=== PATIENT | male | born 1955 | race Caucasian/White ===

== ENCOUNTER → 2018-02-11 08:41 | Outpatient (CLI) | payer MEDICAID, SELFPAY ==
[2018-02-11 11:17] LABS: Cholesterol 165 mg/dL (50-200); HDL Cholesterol 48 mg/dL (40-60); LDL CHOLESTEROL 103 mg/dL (<100); Triglyceride 158 mg/dL (30-150)
[2018-02-11 11:37] LABS: Hemoglobin A1C 7.8 % (4.5-6.2)
== END ==
PROVIDERS: PCP Family Medicine; Visit Provider Family Medicine
DX: E11.9 Type 2 diabetes mellitus without complications (principal); E78.5 Hyperlipidemia, unspecified
CPT/HCPCS: 36415; 80061; 83721; 83036

== ENCOUNTER → 2018-02-26 15:03 | Outpatient (REF) | payer SELFPAY | LOC: OM 15:03 | PROVIDERS: PCP Family Medicine; Visit Provider Nurse Practitioner Family | DX: Z02.79 Encounter for issue of other medical certificate (principal) ==

== ENCOUNTER 2018-08-12 08:40 | Outpatient (CLI) | payer MEDICAID, SELFPAY ==
[2018-08-12 11:37] LABS: CREATININE 1.42 mg/dL (0.70-1.30); Cholesterol 169 mg/dL (50-200); Estimated GFR 50.19 (mL/min/1.73m2); HDL Cholesterol 45 mg/dL (40-60); LDL CHOLESTEROL 95 mg/dL (<100); Potassium 4.1 mmol/L (3.5-5.1); Triglyceride 172 mg/dL (30-150)
[2018-08-12 11:38] LABS: Hemoglobin A1C 7.1 % (4.5-6.2)
== END 2018-08-12 09:00 ==
PROVIDERS: PCP Family Medicine; Visit Provider Family Medicine
DX: E11.9 Type 2 diabetes mellitus without complications (principal)
CPT/HCPCS: 36415; 80061; 83721; 82565; 83036; 84132

== ENCOUNTER 2018-09-27 08:58 | Emergency (ER) | payer MEDICAID, SELFPAY ==
[2018-09-27 09:06] VITALS: BP 149/76; PULSE 69; RESP 14; TEMP 36.6; O2SAT 97
--- NOTE | 2018-09-27 09:10 | W.ED.GENAD ---
Discharge Plan Disposition Patient Disposition: HOME Condition: Stable Discharge Details Chief Complaint: Nk/Back Pain Clinical Impression: Compression fracture of thoracic vertebra Primary Care Provider: Houston Scott ED Provider: Patt Costa Home Meds and New Rx's Prescriptions: New methocarbamol 750 mg tablet 750 mg PO Q4H PRN (Reason: muscle spasm) Qty: 20 RF: 0 Continued aspirin [Ecotrin Low Strength] 81 MG tablet,delayed release (DR/EC) 81 mg PO DAILY RF: 0 omega-3 fatty acids-fish oil 1 EACH capsule 4 cap PO DAILY RF: 0 metformin [Glucophage XR] 750 MG tablet extended release 24 hr 1,500 mg PO DAILY Qty: 180 RF: 4 pravastatin 40 MG tablet 40 mg PO DAILY Qty: 90 RF: 3 atenolol 50 MG tablet 50 mg PO DAILY Qty: 90 RF: 4 sildenafil (antihypertensive) 20 mg tablet 20 - 100 mg PO DAILY PRN (Reason: erectile dysfunction) Qty: 30 RF: 3 diltiazem HCl [Cardizem CD] 240 mg capsule,extended release 24hr 240 mg PO DAILY Qty: 90 RF: 3 lisinopril-hydrochlorothiazide 20-12.5 mg tablet 1 tab PO DAILY Qty: 90 RF: 3 naproxen sodium [Aleve] 220 mg Tablet 440 mg PO DAILY RF: 0 Discharge Instructions Instructions: Vertebral Compression Fracture (ED), Thoracolumbar Fracture (ED) Additional Instructions: Alternate Tylenol and Motrin as needed and directed for pain. Take the muscle relaxer for pain not relieved with Tylenol or Motrin. Apply ice to the affected area several times daily for 20 minutes at a time. Follow-up with your primary care doctor next week for reevaluation. Return immediately to the emergency department any worsening or new concerning symptoms. Discharge Data Discharge Physician: Patt Costa Medical Decision Making 63-year-old male who presents with right-sided lower back pain after slip and fall directly on ice onto his back. Denies LOC or vomiting, headache or neck pain. He has had relief with ice, heat and Aleve. No evidence of head trauma, C-spine tenderness. He had brief anterior neck pain after fall but states this has been resolved for a few days and he has no evidence of trauma to his anterior posterior neck. He has no midline thoracic or lumbar spine tenderness. He has tenderness to palpation of right lower thoracic and upper lumbar paraspinal region and tenderness palpation of right lower inferior ribs. No step-off, or evidence of trauma to ribs or lower back. No focal deficits. Neurovascularly intact. Abdomen soft and nontender. Lungs clear to auscultation. Patient ambulated to the room in no acute distress. Patient is declining any narcotic pain medication or anything for pain at this time. Will send for lumbar spine and right rib x-rays. 1030 --x-rays reviewed and note a 30% anterior wedging of T12 of undetermined age but possibly an acute compression fracture. Rib and chest x-ray negative. 1040 --x-rays reviewed with Dr. Alexis and no acute recommendations. Recommends ice, and pain control and patient to follow-up with primary care doctor. Patient declines any narcotic pain medication upon discharge. He is agreeable with plan for muscle relaxers. He is instructed to apply ice, limit heavy lifting, take Motrin or Tylenol and muscle relaxers as needed and directed for pain and to follow-up with his primary care doctor for reevaluation and return here immediately if worse. Imaging Data Radiologic Study: Radiologist's impression: XR Lumbar Spine, 4 or 5 Views EXAM DATE/TIME: 09/27/2018 9:36 AM FINDINGS: Vertebrae: Dextroscoliosis. 30% anterior wedging of T12 of indeterminate age. Possible acute compression fracture. Soft tissues: Normal. IMPRESSION: 30% anterior wedging of T12 of indeterminate age. Possible acute compression fracture. XR Right Ribs, 2 Views EXAM DATE/TIME: 09/27/2018 9:36 AM FINDINGS: Bones/joints: Normal. Soft tissues: Normal. IMPRESSION: No acute findings. XR Chest, 2 Views EXAM DATE/TIME: 09/27/2018 9:36 AM FINDINGS: Lungs: Unremarkable. No consolidation. Pleural space: Unremarkable. No pleural effusion. No pneumothorax. Heart/Mediastinum: Unremarkable. No cardiomegaly. Bones/joints: Mild thoracic spondylosis. IMPRESSION: No acute findings. HPI General Mode of arrival: ambulatory. Date/Time Provider Initiated Documentation: 09/27/18 09:07. Limitations to Documentation: no limitations. Information obtained by: patient. HPI Narrative: Patient is a 63-year-old male who presents the ED with a complaint of right-sided lower back pain for the past 5 days after slipping and falling on ice. Patient states he slipped on ice 5 days ago and hit the back of his head and his lower back on the ice. He denies any loss of consciousness, vomiting, headache or neck pain. He states he had mild anterior neck pain for 2 days after the accident but states this resolved and now he has no neck pain. He denies any upper extremity weakness or numbness. He states his back pain is in his lower back and more on the right side. It is worse with movement and when specifically moving from a lying down to standing position. He has taken Aleve for pain with some relief. He has also used heat and ice. He denies any bowel or bladder incontinence, leg pain, numbness or weakness, or saddle anesthesia. Related Data Home Medications Medication Instructions Recorded Confirmed aspirin [Ecotrin Low Strength] 81 mg PO DAILY tab-cap 11/19/12 09/27/18 omega-3 fatty acids-fish oil 4 cap PO DAILY 11/19/12 09/27/18 metformin [Glucophage XR] 1,500 mg PO DAILY #180 tab-cap 01/31/18 09/27/18 atenolol 50 mg PO DAILY #90 tab-cap 02/11/18 09/27/18 pravastatin 40 mg PO DAILY #90 tab-cap 02/11/18 09/27/18 sildenafil (antihypertensive) 20 20 - 100 mg PO DAILY PRN #30 07/15/18 09/27/18 mg tablet tab-cap diltiazem CD 240 mg 240 mg PO DAILY #90 tab-cap 08/05/18 09/27/18 capsule,extended release 24 hr lisinopril 20 1 tab PO DAILY #90 tab 09/03/18 09/27/18 mg-hydrochlorothiazide 12.5 mg tablet methocarbamol 750 mg PO Q4H PRN #20 tab 09/27/18 naproxen sodium [Aleve] 440 mg PO DAILY 09/27/18 09/27/18 Previous Rx's Medication Instructions Recorded metformin [Glucophage XR] 1,500 mg PO DAILY #180 tab-cap 01/31/18 atenolol 50 mg PO DAILY #90 tab-cap 02/11/18 pravastatin 40 mg PO DAILY #90 tab-cap 02/11/18 sildenafil (antihypertensive) 20 20 - 100 mg PO DAILY PRN #30 07/15/18 mg tablet tab-cap diltiazem CD 240 mg 240 mg PO DAILY #90 tab-cap 08/05/18 capsule,extended release 24 hr lisinopril 20 1 tab PO DAILY #90 tab 09/03/18 mg-hydrochlorothiazide 12.5 mg tablet methocarbamol 750 mg PO Q4H PRN #20 tab 09/27/18 Allergies Allergy/AdvReac Type Severity Reaction Status Date / Time atorvastatin Allergy Intermediate RASH Unverified 09/27/18 09:10 simvastatin AdvReac RASH Unverified 09/27/18 09:10 General Stated Complaint: Nk/Back Pain AFTAB: 3 Review of Systems Review of Systems All systems reviewed & are unremarkable except as noted in HPI and below Constitutional Reports as per HPI, Denies chills and Denies fever(s) Eyes Denies blurry vision ENT Denies dizziness, Denies sore throat and Denies throat swelling Cardiovascular Denies chest pain and Denies dyspnea Respiratory Denies cough and Denies dyspnea Gastrointestinal Denies abdominal pain, Denies diarrhea and Denies vomiting Genitourinary Denies hematuria and Denies dysuria Musculoskeletal Reports back pain and Denies numbness Integumentary/Breasts Denies lesions and Denies rash Neurologic Denies dizziness, Denies focal weakness and Denies numbness Allergic/Immunologic Denies throat swelling PFSH Medical History Hx of hyperlipidemia (Acute) Diabetes (Chronic) HTN (hypertension) (Chronic) Surgical History History of neck surgery (Acute) Family History Mother No problems noted. Father Essential hypertension Heart disease Hyperlipidemia Myocardial infarction Sister Essential hypertension Hyperlipidemia Neoplasm Sister Essential hypertension Neoplasm Grandfather No problems noted. Grandfather No problems noted. Grandmother No problems noted. Grandmother No problems noted. Sister No problems noted. Son No problems noted. Daughter No problems noted. Social History Smoking/Tobacco Use Status: Never Drug use: Never Substance use type: does not use Do you feel safe at home: Yes Do you feel safe in your relationship?: Yes Exam Const General: cooperative, healthy appearing and no acute distress [facility] Head: normal to inspection, no palpable skull fracture, normocephalic and atraumatic General nose exam: external nose normal Face and sinus: normal facial exam Mouth: oral mucosae normal Eyes General: appearance normal, both eyes and all related structures Pupils: PERRL EOM: EOM intact bilaterally Neck Neck: normal visual inspection, full ROM, trachea midline, supple, no anterior neck swelling, no midline deformity, nontender and No submandibular swelling Lymphatic: no lymphadenopathy noted Chest Chest: normal inspection of the chest and no tenderness Resp Effort & Inspection: normal respiratory effort and able to speak in complete sentences Auscultation: clear to auscultation bilaterally Cardio Rate: regular rate Rhythm: regular rhythm GI Inspection: normal to inspection Palpation: soft, not firm, not rigid and nontender Auscultation: normal bowel sounds Back/Spine/Pelvis Cervical Spine: No cervical spinal tenderness Thoracic/Lumbar Spine: straight leg raise negative bilaterally, paraspinal tenderness (Right lower thoracic and upper lumbar.), No thoracic spinal tenderness and No lumbar spinal tenderness Sacrum: no ecchymosis, no erythema, no swelling and no tenderness Coccyx: no swelling and no tenderness Back/spine/pelvis image: 1. Tenderness to palpation right paraspinal lower thoracic and upper lumbar and lower right posterior ribs. No evidence of edema, erythema, step-off, ecchymosis or laceration. No midline thoracic or lumbar spine tenderness. Skin General skin exam: no rashes or lesions noted Neuro General: alert, awake, oriented x3, gait normal, moves all extremities, no meningeal signs and no focal motor deficits Cognition: normal cognition Speech: speech normal Motor: muscle tone normal throughout and strength 5/5 throughout Sensory Exam: no sensory deficits noted DTR's: Rt Patellar: 2+, Lt Patellar: 2+, Rt Ankle: 2+ and Lt Ankle: 2+ Plantar Reflexes: Equivocal: bilateral Extrem General: normal to inspection, full ROM, no calf tenderness bilaterally and no edema Right lower extremity: foot Details: vascular exam Details: dorsalis pedis pulse present and posterior tibial pulse present Left lower extremity: foot Details: vascular exam Details: dorsalis pedis pulse present and posterior tibial pulse present Psych Appearance: grossly normal Mental Status: mental status grossly normal Speech and Movement: speech and movement normal Affect: normal affect Course Vital Signs Temperature 97.9 F 09/27/18 09:06 Pulse 69 09/27/18 09:06 Respiratory Rate 14 09/27/18 09:06 Blood Pressure 149/76 H 09/27/18 09:06 Pulse Oximetry 97 09/27/18 09:06 Temperature 97.9 F 09/27/18 09:06 Temperature Source Temporal Artery Scan 09/27/18 09:06 Pulse 69 09/27/18 09:06 Respiratory Rate 14 09/27/18 09:06 Respiratory Effort Non-Labored 09/27/18 09:08 Blood Pressure 149/76 H 09/27/18 09:06 Blood Pressure Position Sitting 09/27/18 09:06 Pulse Oximetry 97 09/27/18 09:06 Oxygen Delivery Method Room Air 09/27/18 09:06 Oxygen Flow Rate 0 09/27/18 09:06 Pain Level 2 09/27/18 09:06
--- NOTE | 2018-09-27 10:05 | DI.RAD_ITS ---
SYMPTOM/DIAGNOSIS: S/P FALL, ? FX, PAIN PA AND LATERAL CHEST AND RIGHT RIBS: PA and lateral chest and four additional views of the ribs were obtained. Heart is not enlarged and the lungs are clear. No pleural effusion is seen. No rib fracture identified. Note is made of a T 12 anterior compression fracture of uncertain age. Please see accompanying lumbosacral spine radiograph report. LUMBOSACRAL SPINE: Five views were obtained. There is moderate right convex lumbar scoliosis. There are marked degenerative hypertrophic changes of the facet joints and to a lesser degree, the vertebral endplates in the lumbar region. There is an anterior compression fracture of T 12 vertebral body which is of uncertain age with approximately 30% loss of height anteriorly. Posterior elements appear grossly intact as visualized on plain films. CONCLUSION: Indeterminate age T 12 anterior compression fracture.
--- NOTE | 2018-09-27 10:37 | DI.VRAD_ITS ---
EXAM: XR Lumbar Spine, 4 or 5 Views EXAM DATE/TIME: 09/27/2018 9:36 AM CLINICAL HISTORY: 63 years old, male; Pain; Low back pain; Patient HX: Low back pain since saturday with fall on ice, no radiating pain down either legs. TECHNIQUE: Imaging protocol: XR of the lumbar spine, 4 or 5 views. COMPARISON: No relevant prior studies available. FINDINGS: Vertebrae: Dextroscoliosis. 30% anterior wedging of T12 of indeterminate age. Possible acute compression fracture. Soft tissues: Normal. IMPRESSION: 30% anterior wedging of T12 of indeterminate age. Possible acute compression fracture. Dictated and Authenticated by: Gomez Paige MD. Ordering:JAMEY Beltre MD
--- NOTE | 2018-09-27 10:38 | DI.VRAD_ITS ---
EXAM: XR Right Ribs, 2 Views EXAM DATE/TIME: 09/27/2018 9:36 AM CLINICAL HISTORY: 63 years old, male; Pain; Chest wall pain; Right; Patient HX: Right lower rib pain, since fall on ice on saturday. Generalized right lower rib pain, radiating across lower back. TECHNIQUE: Imaging protocol: XR Right ribs, 2 views. COMPARISON: No relevant prior studies available. FINDINGS: Bones/joints: Normal. Soft tissues: Normal. IMPRESSION: No acute findings. EXAM: XR Chest, 2 Views EXAM DATE/TIME: 09/27/2018 9:36 AM CLINICAL HISTORY: 63 years old, male; Pain; Chest wall pain; Right; Patient HX: Right lower rib pain, since fall on ice on saturday. Generalized right lower rib pain, radiating across lower back. TECHNIQUE: Imaging protocol: XR of the chest, 2 views. COMPARISON: No relevant prior studies available. FINDINGS: Lungs: Unremarkable. No consolidation. Pleural space: Unremarkable. No pleural effusion. No pneumothorax. Heart/Mediastinum: Unremarkable. No cardiomegaly. Bones/joints: Mild thoracic spondylosis. IMPRESSION: No acute findings. Dictated and Authenticated by: Gomez Paige MD. Ordering:JAMEY Beltre MD
== END 2018-09-27 11:16 | disposition home or self-care (01) ==
PROVIDERS: Emergency Provider Physician Assistant; PCP Family Medicine
DX: S22.080A Wedge compression fracture of T11-T12 vertebra, initial encounter for closed fracture (principal); W00.0XXA Fall on same level due to ice and snow, initial encounter
CPT/HCPCS: 99284; 71046; 71100; 72110

== ENCOUNTER 2018-09-30 08:49 | Outpatient (CLI) | payer MEDICAID, SELFPAY ==
[2018-09-30 12:36] LABS: CREATININE 1.61 mg/dL (0.70-1.30); Estimated GFR 43.42 (mL/min/1.73m2)
== END 2018-09-30 09:09 ==
PROVIDERS: PCP Family Medicine; Visit Provider Family Medicine
DX: I10 Essential (primary) hypertension (principal)
CPT/HCPCS: 36415; 82565

== ENCOUNTER 2019-01-08 08:10 | Outpatient (CLI) | payer MEDICAID, SELFPAY ==
[2019-01-08 11:13] LABS: CREATININE 1.59 mg/dL (0.70-1.30); Estimated GFR 44.05 (mL/min/1.73m2)
[2019-01-09 17:06] LABS: BUN 37 mg/dL (7-18)
== END 2019-01-08 08:30 ==
PROVIDERS: PCP Family Medicine; Visit Provider Family Medicine
DX: I10 Essential (primary) hypertension (principal); N28.9 Disorder of kidney and ureter, unspecified
CPT/HCPCS: 36415; 84520; 82565

== ENCOUNTER 2019-04-08 09:45 | Outpatient (CLI) | payer MEDICARE, MEDICAID, SELFPAY ==
[2019-04-08 12:08] LABS: CREATININE 1.18 mg/dL (0.70-1.30); Potassium 5.2 mmol/L (3.5-5.1)
[2019-04-08 12:35] LABS: Hemoglobin A1C 6.6 % (4.5-6.2)
== END 2019-04-08 10:05 ==
PROVIDERS: PCP Family Medicine; Visit Provider Family Medicine
DX: E11.9 Type 2 diabetes mellitus without complications (principal)
CPT/HCPCS: 36415; 82565; 83036; 84132

== ENCOUNTER 2020-03-21 02:30 | Outpatient (CLI) | payer MEDICARE, SELFPAY ==
[2020-03-21 12:38] LABS: CREATININE 1.28 mg/dL (0.70-1.30); Potassium 4.2 mmol/L (3.5-5.1)
[2020-03-21 12:46] LABS: Hemoglobin A1C 6.9 % (<5.7)
[2020-03-21 13:01] LABS: COMMENT (LAB VIEW ONLY) 179.42 mg/dL; Microalb ug/mg Crea 16.3 ug/mg Cr
== END 2020-03-21 02:50 ==
PROVIDERS: PCP Family Medicine; Visit Provider Family Medicine
DX: E11.65 Type 2 diabetes mellitus with hyperglycemia (principal); N28.9 Disorder of kidney and ureter, unspecified
CPT/HCPCS: 36415; 82043; 82565; 82570; 83036; 84132

== ENCOUNTER 2020-10-18 02:28 | Outpatient (CLI) | payer MEDICARE, SELFPAY ==
[2020-10-18 13:33] LABS: ALT 56 U/L (16-63); AST 36 U/L (15-37); Albumin 4.4 g/dL (3.4-5.0); Alkaline Phosphatase 75 U/L (46-116); Bilirubin, Direct 0.2 mg/dL (0.0-0.2); Bilirubin, Total 0.8 mg/dL (0.2-1.0); CREATININE 1.3 mg/dL (0.70-1.30); Estimated GFR 55.23 (mL/min/1.73m2); Total Protein 7.6 g/dL (6.4-8.2)
[2020-10-18 13:43] LABS: Hemoglobin A1C 7.5 % (<5.7)
== END 2020-10-18 02:29 | disposition home or self-care (01) ==
LOC: LOS 02:28
PROVIDERS: PCP Family Medicine; Visit Provider Family Medicine
DX: I10 Essential (primary) hypertension (principal); K76.0 Fatty (change of) liver, not elsewhere classified; R73.9 Hyperglycemia, unspecified; G72.89 Other specified myopathies
CPT/HCPCS: 36415; 80076; 82565; 83036

== ENCOUNTER 2021-04-18 09:56 | Outpatient (CLI) | payer MEDICARE, SELFPAY ==
[2021-04-18 12:35] LABS: CREATININE 1.2 mg/dL (0.70-1.30); Calculated LDL 108 mg/dL (<100); Cholesterol 201 mg/dL (<200); HDL Cholesterol 49 mg/dL (40-60); Potassium 4.4 mmol/L (3.5-5.1); Triglyceride 224 mg/dL (<150)
[2021-04-18 12:58] LABS: Hemoglobin A1C 7.6 % (<5.7)
== END 2021-04-18 09:57 | disposition home or self-care (01) ==
PROVIDERS: PCP Family Medicine; Referring Provider Family Medicine; Visit Provider Family Medicine
DX: I10 Essential (primary) hypertension (principal); E78.5 Hyperlipidemia, unspecified; R73.9 Hyperglycemia, unspecified
CPT/HCPCS: 36415; 80061; 82565; 83036; 84132

== ENCOUNTER 2022-04-19 09:47 | Outpatient (CLI) | payer MEDICARE, SELFPAY ==
[2022-04-19 12:49] LABS: CREATININE 1.4 mg/dL (0.70-1.30); Estimated GFR 54.75 (mL/min/1.73m2); Hemoglobin A1C 7.3 % (<5.7); Potassium 4.3 mmol/L (3.5-5.1)
== END 2022-04-19 09:48 | disposition home or self-care (01) ==
LOC: LOS 09:48
PROVIDERS: PCP Family Medicine; Visit Provider Family Medicine
DX: R73.9 Hyperglycemia, unspecified (principal); I10 Essential (primary) hypertension
CPT/HCPCS: 36415; 82565; 83036; 84132

== ENCOUNTER 2022-10-16 08:13 | Outpatient (CLI) | payer MEDICARE, SELFPAY ==
[2022-10-16 12:32] LABS: CREATININE 1.3 mg/dL (0.70-1.30); Estimated GFR 59.84 (mL/min/1.73m2); Potassium 4.2 mmol/L (3.5-5.1)
[2022-10-16 12:34] LABS: Hemoglobin A1C 7.7 % (<5.7)
[2022-10-16 12:49] LABS: Calculated LDL 107 mg/dL (<100); Cholesterol 208 mg/dL (<200); HDL Cholesterol 55 mg/dL (40-60); Triglyceride 233 mg/dL (<150)
== END 2022-10-16 08:14 | disposition home or self-care (01) ==
LOC: LOS 08:13
PROVIDERS: PCP Family Medicine; Referring Provider Family Medicine; Visit Provider Family Medicine
DX: I10 Essential (primary) hypertension (principal); E78.5 Hyperlipidemia, unspecified; E11.9 Type 2 diabetes mellitus without complications
CPT/HCPCS: 36415; 80061; 82565; 83036; 84132

== ENCOUNTER 2022-10-16 11:23 | Outpatient (REF) | payer MEDICARE, SELFPAY ==
[2022-10-16 13:37] LABS: COMMENT (LAB VIEW ONLY) 107.61 mg/dL
== END 2022-10-16 11:24 | disposition home or self-care (01) ==
LOC: LBN 11:23
PROVIDERS: PCP Family Medicine; Visit Provider Family Medicine
DX: E11.9 Type 2 diabetes mellitus without complications (principal)
CPT/HCPCS: 82043; 82570

== ENCOUNTER 2023-10-29 16:09 | Outpatient (REF) | payer MEDICARE, SELFPAY ==
[2023-10-29 22:25] LABS: COMMENT (LAB VIEW ONLY) 154.26 mg/dL; Microalb ug/mg Crea 55.4 ug/mg Cr
== END 2023-10-29 16:10 | disposition home or self-care (01) ==
LOC: LBN 16:09
PROVIDERS: PCP Family Medicine; Visit Provider Family Medicine
DX: E11.9 Type 2 diabetes mellitus without complications (principal)
CPT/HCPCS: 82043; 82570

== ENCOUNTER 2023-11-04 05:14 | Outpatient (CLI) | payer MEDICARE, SELFPAY ==
[2023-11-04 12:32] LABS: CREATININE 1.3 mg/dL (0.70-1.30); Estimated GFR 59.47 (mL/min/1.73m2); Potassium 4.3 mmol/L (3.5-5.1)
== END 2023-11-04 05:15 | disposition home or self-care (01) ==
LOC: LOS 05:14
PROVIDERS: PCP Family Medicine; Visit Provider Family Medicine
DX: I10 Essential (primary) hypertension (principal)
CPT/HCPCS: 36415; 82565; 84132

== ENCOUNTER 2025-02-02 21:15 | Outpatient (REF) | payer MEDICARE, SELFPAY ==
[2025-02-02 22:12] LABS: Glucose Negative (Negative)
[2025-02-02 22:18] LABS: C & S Indicated? No; RBC Negative HPF (0-2)
[2025-02-02 22:36] LABS: COMMENT (LAB VIEW ONLY) 162.46 mg/dL; Microalb ug/mg Crea 42.2 ug/mg Cr
== END 2025-02-02 21:16 | disposition home or self-care (01) ==
LOC: LBN 21:15
PROVIDERS: PCP Family Medicine; Visit Provider Family Medicine
DX: E11.9 Type 2 diabetes mellitus without complications (principal); M54.50 Low back pain, unspecified
CPT/HCPCS: 81003; 81015; 82043; 82570

== ENCOUNTER 2025-02-11 03:50 | Outpatient (CLI) | payer MEDICARE, SELFPAY ==
[2025-02-11 12:40] LABS: Estimated GFR 29.80 (mL/min/1.73m2); Potassium 4.1 mmol/L (3.5-5.1)
[2025-02-11 13:39] LABS: Lab Add On Test DONE
[2025-02-11 14:28] LABS: BUN 41 mg/dL (7-18)
== END 2025-02-11 03:51 | disposition home or self-care (01) ==
LOC: LOS 03:51
PROVIDERS: PCP Family Medicine; Visit Provider Family Medicine
DX: I10 Essential (primary) hypertension (principal)
CPT/HCPCS: 36415; 84520; 82565; 84132

== ENCOUNTER 2025-04-06 08:38 | Outpatient (CLI) | payer MEDICARE, SELFPAY ==
[2025-04-06 14:17] LABS: BUN 26 mg/dL (7-18); Estimated GFR 54.07 (mL/min/1.73m2)
== END 2025-04-06 08:39 | disposition home or self-care (01) ==
PROVIDERS: PCP Family Medicine; Visit Provider Family Medicine
DX: N28.9 Disorder of kidney and ureter, unspecified (principal)
CPT/HCPCS: 36415; 84520; 82565